=== PATIENT | female | born 1940 | race Two or more races ===

== ENCOUNTER 2018-06-20 07:46 | Emergency (ER) | payer MEDICARE, MEDICAID ==
[~2018-06-20] VITALS: Ht 162.6 cm; Wt 58.0 kg
[2018-06-20 08:39] VITALS: BP 157/85
== END 2018-06-20 08:47 | disposition home or self-care (01) ==
LOC: ER 08:07
DX: I10 Essential (primary) hypertension (principal); J45.909 Unspecified asthma, uncomplicated; H26.8 Other specified cataract; H40.9 Unspecified glaucoma
CPT/HCPCS: 82962; 99283